=== PATIENT | female | born 1990 | race Hispanic/Latino ===

== ENCOUNTER 2018-02-25 12:35 | Emergency (ER) | payer SELFPAY ==
[~2018-02-25] VITALS: Ht 157.5 cm; Wt 124.7 kg
[2018-02-25] MEDS ORDERED: ONDANSETRON HCL INJ 2 MG/ML VIAL IV STA (13:04)
[2018-02-25] MEDS ORDERED: SODIUM CHLORIDE 0.9% 1000ML 1,000 ML IV STA (13:04)
[2018-02-25] MEDS ORDERED: MORPHINE SULFATE INJ 4 MG/ML INJ IV STA (13:04)
[2018-02-25 14:27] LABS: BASOPHILS # (AUTO) 0.1 (0.0-0.1); EOSINOPHILS # (AUTO) 0.1 (0.0-0.4); EOSINOPHILS % 0.9 % (0.0-6.0); HEMATOCRIT 34.7 % (34.2-44.1); HEMOGLOBIN 10.5 g/dL (12.0-16.0); LYMPHOCYTES # (AUTO) 2.1 (1.0-3.2); LYMPHOCYTES % 23.1 % (18.0-39.1); MEAN CORPUSCULAR HEMOGLOBIN 23.2 pg (28-32); MEAN CORPUSCULAR HGB CONC 30.3 g/dL (31-35); MEAN CORPUSCULAR VOLUME 76.6 fL (81-99); MONOCYTES # (AUTO) 0.6 (0.2-0.8); MONOCYTES % 6.1 % (4.4-11.3); NEUTROPHILS # (AUTO) 6.2 (2.1-6.9); NEUTROPHILS % 67.9 % (38.7-80.0); PLATELET COUNT 369 x10e3/uL (140-360); RED BLOOD COUNT 4.53 x10e6/uL (3.6-5.1); RED CELL DISTRIBUTION WIDTH 17.2 % (11.7-14.4)
[2018-02-25 14:35] LABS: BILIRUBIN,URINE NEGATIVE (NEGATIVE); CLARITY,URINE CLEAR (CLEAR); COLOR,URINE YELLOW (YELLOW); KETONES,URINE NEGATIVE (NEGATIVE); LEUKOCYTE ESTERASE ,URINE NEGATIVE (NEGATIVE); NITRITE,URINE NEGATIVE (NEGATIVE); PROTEIN,URINE DIPSTICK NEGATIVE (NEGATIVE); URINE UROBILINOGEN 0.2 mg/dL (0.2 - 1)
[2018-02-25 14:36] LABS: PREGNANCY TEST, URINE NEGATIVE (NEGATIVE)
[2018-02-25 14:45] LABS: ALANINE AMINOTRANSFERASE 33 IU/L (0-55); ALBUMIN 4.1 g/dL (3.5-5.0); ALBUMIN/GLOBULIN RATIO 1.1 (0.8-2.0); ALKALINE PHOSPHATASE 73 IU/L (40-150); ANION GAP 13.7 mmol/L (8-16); BLOOD UREA NITROGEN 14 mg/dL (7-26); BUN/CREATININE RATIO 20 (6-25); CALCIUM 9.2 mg/dL (8.4-10.2); CARBON DIOXIDE 22 mmol/L (22-29); CHLORIDE 103 mmol/L (98-107); EST GLOMERULAR FILTRATION RATE > 60 ML/MIN (60-); GLUCOSE 96 mg/dL (74-118); LIPASE 10 U/L (8-78); POTASSIUM 3.7 mmol/L (3.5-5.1); SODIUM 135 mmol/L (136-145)
[2018-02-25 14:49] LABS: BACTERIA,URINE FEW /HPF; EPITHELIAL CELLS,URINE MANY /LPF
--- NOTE | 2018-02-25 16:28 | Diagnostic Imaging Report ---
EXAM: Transabdominal and Transvaginal Pelvic Ultrasound INDICATION: ^ovarian cyst /abscess / torsion ^[id number] ^[id number] COMPARISON: None TECHNIQUE: Grayscale transverse and sagittal transabdominal and transvaginal images were obtained of the pelvis. Transvaginal imaging was medically necessary to better evaluate the endometrium and the adnexa. CLINICAL HISTORY: 28 year old A0; last menstrual period: 02/14/2018. FINDINGS: Uterus Orientation: Normal Size: 7.8 x 4.3 x 4.9 cm, Normal Mass: None Cervix: Normal Endometrium: Thickness: 0.9 cm, Normal. Appearance: Homogeneous echotexture without focal thickening. Right ovary: Not well visualized Left ovary: Not well-visualized Adnexa: 12.2 x 6.2 x 5.9 cm oval-shaped anechoic lesion containing few echogenic foci. No internal vascularity. Cul-de-sac: Mild free fluid IMPRESSION: Ovaries not well visualized. Large anechoic cystic structure in the region of the left adnexa is indeterminate. Unequivocal findings to diagnose ovarian torsion. Recommend further evaluation with MRI pelvis female with and without contrast. Signed by: Dr. Cherelle Ventura M.D. on 02/25/2018 4:25 PM
--- NOTE | 2018-02-25 16:42 | Diagnostic Imaging Report ---
EXAMINATION: CT of the abdomen and pelvis with contrast. TECHNIQUE: Spiral CT images of the abdomen and pelvis were performed from the lung bases to the lesser trochanters after the intravenous administration of 100 cc of Omnipaque 300 and the oral administration of water. Coronal and sagittal reformatted images were obtained. COMPARISON: Pelvic ultrasound same day CLINICAL HISTORY:Right lower quadrant pain, concern for appendicitis versus ovarian cyst. DISCUSSION: ABDOMEN/PELVIS: LOWER THORAX:Unremarkable. HEPATOBILIARY: Hepatic parenchyma is diffusely hypoattenuating compatible with steatosis. No focal hepatic lesion or intrahepatic biliary ductal dilatation. The gallbladder is unremarkable. SPLEEN: No splenomegaly. PANCREAS: No focal masses or ductal dilatation. ADRENALS: No adrenal nodules. KIDNEYS/URETERS: No hydronephrosis, stones, or solid mass lesions. PELVIC ORGANS/BLADDER: Urinary bladder is incompletely distended but otherwise unremarkable. Uterus is neutral in position and appears normal. Bilateral adnexal low-attenuation lesions are identified, measuring 4.8 cm on the left and 11.5 cm on the right. Both structures have a somewhat serpiginous configuration without definite internal solid component and with average internal attenuation less than 20 Hounsfield units. PERITONEUM/RETROPERITONEUM: Trace simple free pelvic fluid. No pneumoperitoneum. LYMPH NODES: No pelvic sidewall, retroperitoneal, or mesenteric lymphadenopathy. VESSELS: Abdominal aorta, major branch vessels, and iliac arterial systems are well-visualized and patent. Portal vein, splenic vein, and central superior mesenteric vein are patent. GI TRACT: The large bowel shows no evidence of distention or wall thickening. There are a few diverticula along the descending colon without evidence of diverticulitis. The appendix is normal. Stomach is partially collapsed with prominent rugal folds. No small bowel dilatation to suggest obstruction. BONES AND SOFT TISSUE: No bony destructive lesions. No soft tissue abnormalities. IMPRESSION: Bilateral adnexal low-attenuation lesions have serpiginous configuration likely representing hydrosalpinges, though ovarian cysts may have a similar appearance. Refer also to pelvic ultrasound performed same day for further description and recommendations. No acute intra-abdominal or pelvic CT abnormalities. Normal appendix. Hepatic steatosis. Large bowel diverticulosis without findings of diverticulitis. Signed by: Dr. Hector Conroy M.D. on 02/25/2018 4:38 PM
[2018-02-25] MEDS ORDERED: IOPAMIDOL 370 MG/ML 200 ML INFUS..BTL INJ ONE (19:56)
[2018-02-25] MEDS ORDERED: SODIUM CHLORIDE 0.9% 50ML 50 ML ONE (19:56)
== END 2018-02-25 17:02 | disposition home or self-care (01) ==
LOC: ER 12:35
DX: R10.31 Right lower quadrant pain (principal); R11.0 Nausea; N83.201 Unspecified ovarian cyst, right side
CPT/HCPCS: 36415; 74177; 76830; 80053; 81001; 81025; 83690; 85025; 87086; 99284; J2270; J2405; J7030; Q9967